=== PATIENT | female | born 1975 | race Caucasian/White ===

== ENCOUNTER 2023-09-28 00:42 | Day surgery (SDC) | payer OTHER, SELFPAY ==
[2023-09-27 11:19] VITALS: BMI 21.6
--- NOTE | 2023-09-27 11:25 | PC.NURSE ---
Report to the Outpatient Waiting Room, entrance under the green pavilion located off [facility], at time 0630 on date 09/28/23. Planned Procedure Time: 0830. Time changes happen often and if your time is changed the preop area will call you the afternoon before. - You and your visitor will be asked to self-screen and do not enter if you have any COVID symptoms. - A mask is optional within the hospital at this time. Patients may have clear liquids (water, carbonated beverages, clear teas, apple juice) until 3 hours prior to surgery with a maximum of 20 ounces. - No food from midnight until time of surgery Take the following medications with a SIP of water the morning of surgery: BUPROPION, PAIN PILL IF NEEDED DO NOT STOP ANY OF YOUR OTHER PRESCRIPTION MEDICATIONS PRIOR TO SURGERY ?EXCEPT THE FOLLOWING Medications to discontinue per physician: VITAMINS Date to take last dose: NO MORE UNTIL AFTER SURGERY Please no make-up, nail micronesian, hairspray, perfume, deodorant, or body powder the day of surgery. No jewelry (including any body piercings) or valuables the day of surgery, leave them at home. Please take a shower or bath the night before, or the morning of, surgery with an antibacterial soap. Wear comfortable, loose fitting clothing. - Jewelry must be removed prior to entering the operating room. Rings and piercings that are not removed may be cut off. - The hospital will not accept responsibility for valuables. - Please leave all valuables, including medications, at home the day of surgery. If you are going home after surgery, a licensed fork truck driver must drive you home. - NO public transportation without another adult if you receive anesthesia. - We recommend that an adult stay with you for 24 hours following discharge. - We also recommend that you do not drive, make important decision, drink alcoholic beverages, or take any drugs that were not prescribed by your health care provider for at least 24 hours after your discharge time. Follow any additional instructions given to you from your surgeon. If you or anyone in your household have experienced Covid symptoms in the past week, please notify your surgeon or the nurse liaison at the phone number below for possible testing. Telephone instructions given to PT - MARNI SHOEMAKER and asked if any additional questions and then verbalized understanding. Patient advised to call surgeon office or pre surgery nurse liaison [phone] if any additional questions.
[2023-09-28 07:16] VITALS: BP 127/48; PULSE 73; RESP 20; TEMP 36.1; O2SAT 98
--- NOTE | 2023-09-28 07:17 | WPDHPUPDATE1 ---
History and Physical Update Update Date/Time: 09/28/23 07:17 History and Physical has been reviewed, including an updated exam of the patient. There are NO changes in the patient's condition. Risks, benefits, and alternatives have been discussed and questions answered. Patient agrees to proceed with procedure.
[2023-09-28] MEDS: LACTATED RINGERS 1,000 ML 30 ML IV CONT (07:40)
--- NOTE | 2023-09-28 08:25 | WPDANESEPPF ---
Anes - Initial Pre Proc Eval Procedure: Operation Date: 09/28/23 08:30 Proposed Procedures p Right Open Carpal Tunnel Release and Right Ulnar Neuroplasty - Fransisco Alvarez MD Date/Time: 09/28/23 08:25 Surgeon: Fransisco Alvarez MD Pre Op Diagnosis: right carpal & cubital tunnel syndrome Patient Data Age: 47 Gender: F Height: 1.65 m Weight: 60.5 kg Last Vital Signs Temp 96.9 F L 09/28/23 07:16 Pulse 73 09/28/23 07:16 Resp 20 09/28/23 07:16 BP 127/48 L 09/28/23 07:16 Pulse Ox 98 09/28/23 07:16 O2 Del Method Room Air 09/28/23 07:16 Allergies Allergy/AdvReac Type Severity Reaction Status Date / Time Cephalosporins Allergy Unknown Rash Unverified 09/27/23 11:18 morphine Allergy Unknown doesn't Verified 09/28/23 07:33 work Home Medications Medication Instructions Recorded Confirmed Type bupropion HCl 150 mg 24 hr tablet, 150 mg PO DAILY 09/27/23 09/28/23 History extended release hydrocodone 7.5 mg-acetaminophen 1 tablet PO Q6H 09/27/23 09/28/23 History 325 mg tablet multivitamin 1 tablet PO DAILY 09/27/23 09/28/23 History Patient hx anesthesia problems: none Family hx anesthesia problems: none Results Review: All pre-operative results and documents have been reviewed as part of the pre-operative evaluation. [facility] Family History Family History (Updated 05/13/16 @ 23:19 by DOCTOR UNKNOWN) Mother Family history of hepatitis Family history of diabetes mellitus in first degree relative Other Cerebrovascular accident Family history of allergic disorder Social History Social History Years smoked: 5 Smoking status: Former smoker Tobacco type: cigarettes Smoking end date: 10/16/21 Alcohol intake: never Substance use: never Substance use type: does not use Living arrangements: with family Spiritual care concerns: No Anes - Eval Final PreProcedure Day of Procedure 09/28/23 08:25 Patient weight: normal Heart: regular rate and rhythm Lungs: clear to auscultation Airway: Mallampati scale class II Neurological: alert and oriented Last oral intake: >/= 8 hours ASA classification: III Emergent: no Anesthetic plan: proceed Anesthesia type and monitoring: general GIVS and standard monitoring Results Review: All pre-operative results and documents have been reviewed as part of the pre-operative evaluation. Informed Consent: The patient's anesthetic plan and its attendant risks and benefits were discussed with the patient/family/POA. Questions were solicited and answers provided to the satisfaction of the patient/family/POA.
[2023-09-28 09:53] VITALS: BP 99/55; PULSE 76; RESP 12; O2SAT 96
[2023-09-28 10:20] VITALS: BP 99/55; PULSE 61; RESP 20
[2023-09-28] MEDS: oxyCODONE HCL (*CRX) 5 MG TAB IR PO (10:33)
[2023-09-28 10:50] VITALS: BP 112/67; PULSE 67; RESP 20
[2023-09-28] MEDS: fentaNYL CITRATE INJ (*CRX) 100 MCG/2 ML VIAL 25 MCG IV PUSH ×2 (10:53→11:08)
[2023-09-28 11:20] VITALS: BP 112/67; PULSE 67; RESP 20
--- NOTE | 2023-09-29 08:29 | P.OP_ITS ---
Procedure Note - Detailed Date of Procedure 09/28/23 Pre-op Diagnosis right carpal & cubital tunnel syndrome Post-op Diagnosis Same Procedure Performed Right open carpal tunnel release and right ulnar neuroplasty at elbow with anterior subcutaneous transposition of the ulnar nerve Surgeon Fransisco Alvarez MD Anesthesia MAC Description of Procedure The patient's right medial elbow and right carpal tunnel were marked on the patient with her consent in the holding area. She was then transported to the operating room where she was placed supine operating table. She was given IV sedation with LMA. The right upper extremity was prepped and draped in usual fashion. The 2 sites were marked for our incisions and locally infiltrated with 1% lidocaine with epinephrine. The extremity was exsanguinated and tourniquet inflated to 250 mmHg. The incision was made 1st in the palm. Blunt dissection through the s ubcutaneous tissue revealed the palmar aponeurosis and the transverse retinaculum. The 2 were incised with a 15 blade opening the canal. Under 3 point retraction the ligament was divided distally and proximally to completely release it. There was no unusual anatomy noted. The skin was closed with interrupted 5 0 nylon suture. The elbow was flexed and supported on folded towels. The incision was again made as marked. Blunt dissection through the subcutaneous tissue with scissors and cautery revealed the ulnar nerve to be sitting nearly atop the medial epicondyle. The fibrous sheath around that was carefully opened and divided distally and proximally. Puentes's ligament appeared to be fairly attenuated. The flexor muscle fascia was opened until a small finger could be passed alongs lise the nerve distally. Proximally the tight fibrous structures surrounding the nerve were divided. The intermuscular septum was divided. Our incision had to be lengthened in both areas to identify appropriate structures. Again a small finger could be passed alongside the nerve proximally without obstruction. At this point the nerve was clearly out of its canal and we proceeded to transpose it subcutaneously. A fascial flap was designed off the area the medial epicondyle and looped over the nerve and sutured to superficial fascia of the skin flap. Suturing was done with 3-0 Monocryl sutures at 3 sites. It was clear that the nerve could glide and was not constricted by the flap. The tourniquet was released. The wound margins were closed with intradermal 3-0 Monocryl suture at several sites and the skin secured with glue. Usual bandages were applied to both sites. The patient was discharged from the operating room stable condition. She is discharged with a prescription for h ydrocodone 7.5/325 number 7. Instructions in wound care and follow-up were given to her Estimated Blood Loss 5 Tourniquet Time 34 Drains No Packing No Pathology None sent Complications No immediate complications Condition Stable Disposition Same day
== END 2023-09-28 11:28 | disposition home or self-care (01) ==
PROVIDERS: PCP Internal Medicine; Visit Provider Plastic Surgery
PROC: (CPT 64721; principal; 2023-09-28 08:30)
DX: G56.01 Carpal tunnel syndrome, right upper limb (principal); G56.21 Lesion of ulnar nerve, right upper limb; Z87.891 Personal history of nicotine dependence
CPT/HCPCS: 64721; 64718; A9270; J2250; J2405; J2704; J3010; J7120

== ENCOUNTER 2023-10-27 14:32 | Emergency (ER) | payer OTHER, SELFPAY ==
--- NOTE | ~2023-10-27 | XR_ITS ---
XR hand RT min 3V DATE: 10/27/2023 14:55 INDICATION: Fall 2 weeks ago. Right hand pain. Carpal tunnel surgery in September. TECHNIQUE: 3 views COMPARISON: None FINDINGS: No fracture or dislocation, periosteal reaction or bone destruction. Joint spaces are rela tively preserved. There is minimal osteoarthritic change at the interphalangeal joints. No erosive c hange or chondrocalcinosis. IMPRESSION: Minimal osteoarthritis Reviewed, dictated and finalized at location B. NT SUCCESS DIRECTOR IMPRESSION: Minimal osteoarthritis
--- NOTE | 2023-10-27 14:40 | ED.GENADULT ---
HPI - General Adult General Chief complaint: Extremity Injury, Upper Stated complaint: Injured hand Source: patient, RN notes reviewed and old records reviewed Mode of arrival: ambulatory Limitations: no limitations History of Present Illness HPI narrative: 48-year-old female presents to [facility] with complaint of right hand pain this started around In[place] when patient fell ice skating. Patient states feels the pain is worsening with bruising and Harley hand. Patient states on September 18 had carpal tunnel surgery. Patient states has followed up with surgeon and he states surgery was fine. MD complaint: Hand pain Onset (ago): week(s) (3-4) Related Data Home Medications Medication Instructions Recorded Confirmed bupropion HCl 150 mg 24 hr tablet, 150 mg PO DAILY 09/27/23 10/27/23 extended release multivitamin 1 tablet PO DAILY 09/27/23 10/27/23 Allergies Allergy/AdvReac Type Severity Reaction Status Date / Time Cephalosporins Allergy Unknown Rash Unverified 10/27/23 14:39 morphine Allergy Unknown doesn't Verified 10/27/23 14:39 work Review of Systems Constitutional: Constitutional: Reports no additional constitutional complaints, Denies body ache(s), Denies chills, Denies fatigue, Denies fever(s) and Denies headache(s) Eyes: Eyes: Reports no additional eye complaints and Denies blurry vision ENT: Reports system reviewed and no additional complaints, except as documented, Denies vertigo, Denies dizziness, Denies ear discharge, Denies otalgia, Denies facial pain, Denies headache(s), Denies nasal congestion, Denies nasal discharge, Denies sinus pain, Denies sinus pressure and Denies sore throat Cardiovascular: Cardiovascular: Reports no additional cardiovascular complaints, Denies chest pain, Denies chest pain at rest, Denies rapid heart rate and Denies dyspnea Respiratory: Respiratory: Reports no additional respiratory complaints, Denies chest congestion, Denies cough, Denies pain on inspiration, Denies pain with cough and Denies dyspnea Gastrointestinal: Gastrointestinal: Denies abdominal pain, Denies diarrhea, Denies nausea and Denies vomiting Musculoskeletal: Comments: right hand pain Integumentary/Breasts: Skin/Breast: Denies rash Neurologic: Reports system reviewed and no additional complaints, except as documented, Denies vertigo, Denies dizziness and Denies headache(s) Endocrine: Endocrine: Denies fatigue [facility] Family History Family History Mother Family history of hepatitis Family history of diabetes mellitus in first degree relative Other Cerebrovascular accident Family history of allergic disorder Social History Social History Years smoked: 5 Smoking status: Former smoker Tobacco type: cigarettes Smoking end date: 10/16/21 Alcohol intake: never Substance use: never Substance use type: does not use Living arrangements: with family Spiritual care concerns: No Comments At the time of my signature, I reviewed and agree with the nursing past medical, surgical, social, and family history. There is no relevant family history pertinent to the patient complaint. Exam Const: General: cooperative, healthy appearing, no acute distress and well nourished Nutritional Appearance: well nourished Orientation/consciousness: patient oriented x3 Limitations: no limitations HENMT: Head: normal to inspection and normocephalic Ears: external ears normal, TM's normal bilaterally, mastoids normal and Abnormal EAC present Face/Nose/Sinus: normal facial exam Face and sinus: normal facial exam Mouth: Yes Normal oral and palatal mucosa present, Yes oropharynx normal and Yes moist mucous membranes Throat: tonsils normal, uvula midline and no uvular edema Eyes: General: appearance normal, both eyes and all related structures Sclera: sclerae normal Pupils: Eq
[2023-10-27 14:41] VITALS: BP 141/95; PULSE 83; RESP 16; TEMP 36.2; O2SAT 100
== END 2023-10-27 15:15 | disposition home or self-care (01) ==
PROVIDERS: Emergency Provider Registered Nurse
DX: M79.641 Pain in right hand (principal); Z87.891 Personal history of nicotine dependence
CPT/HCPCS: 73130; 99213; G0463

== ENCOUNTER 2024-08-29 15:27 | Outpatient (CLI) | payer OTHER, SELFPAY ==
--- NOTE | 2024-08-29 | ECG_ITS ---
Test Date: 2024-08-29 15:54:27 Measurements Intervals [place] Rate: 73 P: -25 [place]: 170 QRS: 52 QRSD: 86 T: 10 QT: 400 QTc: 442 Interpretive Statements SINUS RHYTHM CANNOT R/O SEPTAL INFARCT, AGE INDETERMINATE BASELINE ARTIFACT- I, II, III, AVR, AVL, AVF ABNORMAL ECG No previous ECG available for comparison Electronically Signed On 08-29-2024 16:36:57 EQUIPMENT WASHER by Joe Mcfarland D.O.
== END 2024-08-29 15:28 | disposition home or self-care (01) ==
DX: Z01.818 Encounter for other preprocedural examination (principal); R94.31 Abnormal electrocardiogram [ECG] [EKG]
CPT/HCPCS: 93005